=== PATIENT | male | born 1955 | race Hispanic/Latino ===

== ENCOUNTER 2020-11-07 20:48 | Inpatient (IN) | payer MEDICARE ==
[~2020-11-07 20:48] MED LIST: Iopamidol-370 76% 500 ML 1 ML ONE
[2020-11-07] MEDS ORDERED: Ondansetron PF 4 MG/2 ML Vial ONE ×2 (21:19→21:26)
[2020-11-07] MEDS ORDERED: Sodium Chloride 0.9% 100 ML ONE ×2 (21:20→22:05)
[2020-11-07] MEDS ORDERED: Morphine 4 MG/ML VIAL ONE (21:20)
[2020-11-07] MEDS ORDERED: Diltiazem 125 MG/25 ML ONE (21:20)
[2020-11-07] MEDS ORDERED: Diltiazem HCl 125 MG, Admixture Fee 1 EACH in Sodium Chloride 0.9% 100 ML IVPB SCH (21:30)
[2020-11-07 21:34] LABS: Hemoglobin 12.9 g/dL (14.0-18.0); Mean Corpuscular Hemoglobin 30.8 pg (27.0-31.0); Mean Corpuscular Volume 93.3 fL (78.0-98.0); RBC Distribution Width 15.3 % (11.5-14.5); Red Blood Cell (RBC) Count 4.19 mill/uL (4.70-6.10); White Blood Cell (WBC) Count 7.3 thou/uL (4.8-10.8)
[2020-11-07 21:52] LABS: Acetaminophen Less than 6.0 mcg/mL (10.0-30.0); Alcohol 116 mg/dL (Less than 10); CK (CPK) 3406 U/L (30-200); Magnesium 1.4 mg/dL (1.6-2.6); Salicylate Less than 8.0 mg/dL (15.0-30.0)
[2020-11-07] MEDS ORDERED: Magnesium 2 GM/50 ML BAG (IN WATER) ONE (21:53)
[2020-11-07 21:57] LABS: #Basophils 0.1 thou/uL (0.0-0.2); #Lymphocytes 0.9 thou/uL (1.20-3.40); #Monocytes 0.7 thou/uL (0.11-0.59); #Neutrophils 5.5 thou/uL (1.40-6.50); %Basophils 0.9 % (0.0-1.0); %Eosinophils 0.1 % (0.0-10.0); %Monocytes 9.9 % (0.0-10.0); %Neutrophils 76.1 % (42.0-75.0); Platelet Count 103 thou/uL (130-400)
[2020-11-07] MEDS ORDERED: Vancomycin 1 GM/200 ML BAG ONE (22:05)
[2020-11-07] MEDS ORDERED: cefTRIAXone\\ROCEPHIN 1 GM VIAL ONE ×2 (22:05→22:06)
[2020-11-07 22:08] LABS: INR-International Normal Ratio 1.3; Prothrombin Time 16.4 sec (12.0-14.7)
[2020-11-07 22:09] LABS: PTT 32.6 sec (22.9-36.1)
[2020-11-07 22:10] LABS: ALT (SGPT) 91 U/L (8-55); AST (SGOT) 216 U/L (5-34); Albumin 3.4 g/dL (3.4-4.8); Alkaline Phosphatase 179 U/L (40-110); Anion Gap 23 mmol/L (10-20); BUN (Urea Nitrogen) 12 mg/dL (8.4-25.7); Bilirubin, Total 1.7 mg/dL (0.2-1.2); Calc. Creatinine Clearance 0 mL/min (70-130); Calcium 8.2 mg/dL (7.8-10.44); Carbon Dioxide 17 mmol/L (23-31); Chloride 96 mmol/L (98-107); Globulin 3.8 g/dL (2.4-3.5); Glucose 281 mg/dL (80-115); Lipase 137 U/L (8-78); Potassium 3.5 mmol/L (3.5-5.1); Protein, Total 7.2 g/dL (5.8-8.1); Sodium 132 mmol/L (136-145)
[2020-11-07] MEDS ORDERED: Lorazepam 2 MG/ML VIAL ONE (22:15)
[2020-11-07 22:29] LABS: CKMB 30.1 ng/mL (0-6.6)
[2020-11-07 23:10] LABS: Analyzer IN Cardio ER; Base Excess (BEa) -1.3 mEq/L (-2.0 to +3.0); CO2 Tension 32.7 mmHg (35.0-45.0); Calcium, Ionized (arterial) 0.99 mmol/L (1.12-1.30); Hemoglobin (Hb) 13.3 g/dL (14.0-18.0); Potassium - ABG Lab 3.41 mmol/L (3.70-5.30); pH, Arterial 7.45 (7.35-7.45)
[2020-11-07 23:14] LABS: O2 Tension (PaO2), arterial 55.8 mmHg (> 80.0); Puncture Site LBA
[2020-11-07 23:15] LABS: ALV-art Gradient 53.055 mmHg (0-20)
[2020-11-07] MEDS ORDERED: Multivitamins, Adult 10 ML, Thiamine HCl 100 MG, Folic Acid 1 MG in Dextrose 5 %-0.45 %... IV SCH (23:59)
[2020-11-08] MEDS ORDERED: Magnesium 2 GM/50 ML BAG (IN WATER) ONE (00:15)
[2020-11-08 00:59] LABS: Bacteria/HPF None Seen HPF (None Seen); Bilirubin Negative (Negative); Blood, Urine 3+ (Negative); Clarity Clear (Clear); Glucose, Urine (Dipstick) Greater than 1000 mg/dL (Negative); Ketone, Urine 10 mg/dL (Negative); Leukocyte Negative Leu/uL (Negative); Nitrite Negative (Negative); Protein, Urine (Dipstick) 70 mg/dL (Neg-Trace); RBC/HPF 0-3 HPF (0-3); Specific Gravity, Urine 1.035 (1.002-1.036); Squamous Epithelial 0-3 HPF (0-3); Urobilinogen Normal mg/dL (Less than 2); WBC/HPF 0-3 HPF (0-3); pH, Urine 6.5 (5.0-9.0)
[2020-11-08] MEDS ORDERED: Ondansetron PF 4 MG/2 ML Vial IVP PRN (01:02)
[2020-11-08] MEDS ORDERED: Dextrose 50% Abboject 50 ML SYRINGE SLOW IVP PRN (01:06)
[2020-11-08] MEDS ORDERED: Dextrose 5% in Water 1,000 ML IV PRN (01:06)
[2020-11-08] MEDS ORDERED: Acetaminophen 500 MG TAB PO PRN (01:11)
[2020-11-08] MEDS ORDERED: Sodium Chloride 0.9% (PF) 10 ML VIAL FS PRN (01:15)
[2020-11-08] MEDS ORDERED: Pantoprazole 40 MG VIAL IVP SCH (01:15)
[2020-11-08 01:17] LABS: Amphetamine Not Detected (NotDetected); Barbiturates Screen Not Detected (NotDetected); Benzodiazepine Screen Not Detected (NotDetected); Cocaine Metabolite Screen Not Detected (NotDetected); Medtox Control Line Valid? VALID (VALID); Medtox Reader # READER 4; Methadone Not Detected (NotDetected); Methamphetamine Not Detected (NotDetected); Opiate Screen Detected (NotDetected); Oxycodone Screen Not Detected (NotDetected); Phencyclidine (PCP) Not Detected (NotDetected); THC/Cannabinoid Screen Detected (NotDetected); Tricyclic Screen Not Detected (NotDetected)
[2020-11-08] MEDS ORDERED: HumaLOG 300 UNITS/3 ML VIAL ONE (01:38)
[2020-11-08] MEDS ORDERED: Pantoprazole 40 MG VIAL ONE ×2 (01:38→08:54)
[2020-11-08] MEDS: HumaLOG 300 UNITS/3 ML VIAL SC PRN (01:45)
[2020-11-08 01:54] LABS: #Basophils 0.1 thou/uL (0.0-0.2); #Lymphocytes 0.9 thou/uL (1.20-3.40); #Monocytes 0.6 thou/uL (0.11-0.59); #Neutrophils 5.8 thou/uL (1.40-6.50); %Basophils 0.8 % (0.0-1.0); %Eosinophils 0.2 % (0.0-10.0); %Lymphocytes 11.5 % (21.0-51.0); %Monocytes 8.4 % (0.0-10.0); %Neutrophils 79.1 % (42.0-75.0); Hemoglobin 12.8 g/dL (14.0-18.0); Mean Corpuscular HGB CONC 33.7 g/dL (32.0-36.0); Mean Corpuscular Hemoglobin 31.7 pg (27.0-31.0); Mean Corpuscular Volume 93.9 fL (78.0-98.0); Mean Platelet Volume 9.2 fL (7.4-10.4); Platelet Count 83 thou/uL (130-400); RBC Distribution Width 15.1 % (11.5-14.5); Red Blood Cell (RBC) Count 4.05 mill/uL (4.70-6.10); White Blood Cell (WBC) Count 7.3 thou/uL (4.8-10.8)
[2020-11-08 02:17] LABS: Troponin I 0.044 ng/mL (< 0.028)
[2020-11-08 02:33] LABS: ALT (SGPT) 93 U/L (8-55); AST (SGOT) 221 U/L (5-34); Albumin 3.1 g/dL (3.4-4.8); Alkaline Phosphatase 171 U/L (40-110); Anion Gap 21 mmol/L (10-20); BUN (Urea Nitrogen) 11 mg/dL (8.4-25.7); Bilirubin, Direct 0.8 mg/dL (0.1-0.3); Bilirubin, Total 1.6 mg/dL (0.2-1.2); CK (CPK) 3335 U/L (30-200); Calc. Creatinine Clearance 0 mL/min (70-130); Calcium 7.8 mg/dL (7.8-10.44); Carbon Dioxide 16 mmol/L (23-31); Chloride 98 mmol/L (98-107); Glucose 278 mg/dL (80-115); Potassium 3.5 mmol/L (3.5-5.1); Protein, Total 6.9 g/dL (5.8-8.1); Sodium 131 mmol/L (136-145)
[2020-11-08] MEDS ORDERED: Lorazepam 2 MG/ML VIAL ONE ×2 (03:02→07:32)
[2020-11-08] MEDS: Lorazepam 2 MG/ML VIAL SLOW IVP PRN ×2 (03:09→07:37)
[2020-11-08] MEDS ORDERED: Ondansetron PF 4 MG/2 ML Vial ONE ×2 (03:09→06:14)
[2020-11-08] MEDS ORDERED: Nitroglycerin 0.4 MG TAB (25 Tab Bottle) SL PRN (04:17)
[2020-11-08] MEDS ORDERED: hydrALAZINE 20 MG/ML VIAL SLOW IVP PRN (04:30)
[2020-11-08 04:38] LABS: Lactic Acid 3.9 mmol/L (0.5-2.2)
[2020-11-08] MEDS ORDERED: Piperacillin/Tazobactam 3.375 GM in Sodium Chloride 0.9% 100 ML IVPB SCH ×2 (04:45→05:00)
[2020-11-08 04:47] LABS: Troponin I 0.047 ng/mL (< 0.028)
[2020-11-08] MEDS ORDERED: Piperacillin/Tazobactam 3.375 GM VIAL ONE ×3 (06:36→16:58)
[2020-11-08] MEDS ORDERED: Digoxin 0.25 MG TAB ONE (08:54)
[2020-11-08] MEDS ORDERED: Folic Acid 1 MG TAB ONE (08:54)
[2020-11-08] MEDS ORDERED: Multivitamin W/ Minerals 1 TAB PO SCH (09:00)
[2020-11-08] MEDS ORDERED: Folic Acid 1 MG TAB PO SCH (09:00)
[2020-11-08] MEDS: Sodium Chloride 0.9% 1,000 ML IV SCH ×3 (09:15→17:14)
[2020-11-08] MEDS: Piperacillin/Tazobactam 3.375 GM in Sodium Chloride 0.9% 100 ML IVPB SCH ×2 (09:16→17:13)
[2020-11-08] MEDS: chlordiazePOXIDE HCl 25 MG CAP PO SCH ×3 (09:16→21:49)
[2020-11-08] MEDS: Digoxin 0.25 MG TAB PO SCH (09:16)
[2020-11-08] MEDS: Pantoprazole 40 MG VIAL IVP SCH ×2 (09:16→21:49)
[2020-11-08] MEDS ORDERED: Thiamine HCl 200 MG/2 ML VIAL IM SCH (09:45)
[2020-11-08] MEDS ORDERED: Diazepam 5 MG TAB PO SCH (09:45)
[2020-11-08] MEDS ORDERED: Diazepam 5 MG TAB PO PRN (09:45)
[2020-11-08] MEDS ORDERED: Diazepam 5 MG TAB ONE (10:31)
[2020-11-08] MEDS ORDERED: chlordiazePOXIDE HCl 25 MG CAP ONE (17:14)
[2020-11-08 19:05] VITALS: BMI 44.2
[2020-11-09] MEDS: Sodium Chloride 0.9% 1,000 ML IV SCH ×3 (00:51→14:55)
[2020-11-09] MEDS: Piperacillin/Tazobactam 3.375 GM in Sodium Chloride 0.9% 100 ML IVPB SCH ×3 (00:53→17:30)
[2020-11-09 04:43] LABS: #Eosinphils 0.1 thou/uL (0.0-0.7); #Monocytes 0.5 thou/uL (0.11-0.59); #Neutrophils 2.7 thou/uL (1.40-6.50); %Basophils 0.9 % (0.0-1.0); %Lymphocytes 23.2 % (21.0-51.0); %Monocytes 11.8 % (0.0-10.0); %Neutrophils 62.1 % (42.0-75.0); Hemoglobin 11.9 g/dL (14.0-18.0); Mean Corpuscular Hemoglobin 31.7 pg (27.0-31.0); Mean Corpuscular Volume 93.3 fL (78.0-98.0); Mean Platelet Volume 9.9 fL (7.4-10.4); Platelet Count 61 thou/uL (130-400); RBC Distribution Width 15.6 % (11.5-14.5); Red Blood Cell (RBC) Count 3.77 mill/uL (4.70-6.10); White Blood Cell (WBC) Count 4.3 thou/uL (4.8-10.8)
[2020-11-09 05:10] LABS: ALT (SGPT) 89 U/L (8-55); AST (SGOT) 212 U/L (5-34); Albumin 2.8 g/dL (3.4-4.8); Alkaline Phosphatase 173 U/L (40-110); Anion Gap 11 mmol/L (10-20); BUN (Urea Nitrogen) 12 mg/dL (8.4-25.7); Bilirubin, Direct 0.8 mg/dL (0.1-0.3); Bilirubin, Total 1.9 mg/dL (0.2-1.2); Calc. Creatinine Clearance 158 mL/min (70-130); Calcium 7.5 mg/dL (7.8-10.44); Carbon Dioxide 21 mmol/L (23-31); Chloride 101 mmol/L (98-107); Glucose 235 mg/dL (80-115); Iron 66 ug/dL (65-175); Iron Binding Capacity, Total 296 mcg/dL (261-462); Magnesium 1.8 mg/dL (1.6-2.6); Potassium 3.4 mmol/L (3.5-5.1); Protein, Total 6.3 g/dL (5.8-8.1); Sodium 130 mmol/L (136-145)
[2020-11-09 05:19] LABS: Ferritin 268.02 ng/mL (22-322)
[2020-11-09 05:32] LABS: HBCM Index 0.09 S/CO (0-0.79); HBSAg Index 0.24 S/CO (0-0.99); Hep A IgM AB Non-Reactive (NonReactive); Hep A IgM S/CO 0.32 S/CO (0-0.79); Hep B Surf Ag Non-Reactive S/CO (NonReactive); Hep C IgG Ab Non-Reactive (NonReactive); Hep C Index 0.05 S/CO (0-0.79); Hepatitis B Core IgM Abs Non-Reactive (NonReactive)
[2020-11-09] MEDS: HumaLOG 300 UNITS/3 ML VIAL SC PRN ×3 (06:41→17:30)
[2020-11-09] MEDS: Multivit, Therapeutic 1 TAB PO SCH (08:58)
[2020-11-09] MEDS: Pantoprazole 40 MG VIAL IVP SCH ×2 (08:58→20:59)
[2020-11-09] MEDS: Digoxin 0.25 MG TAB PO SCH (08:58)
[2020-11-09] MEDS: Thiamine 100 MG TAB PO SCH (08:58)
[2020-11-09] MEDS: chlordiazePOXIDE HCl 25 MG CAP PO SCH ×3 (09:03→20:57)
[2020-11-09] MEDS: Folic Acid 1 MG TAB PO SCH (09:08)
[2020-11-09] MEDS ORDERED: Potassium Chloride 20 MEQ TAB PO SCH (09:30)
[2020-11-09] MEDS: methylPREDNISolone Sod Succ/PF 125 MG/2 ML VIAL IVP SCH (17:29)
[2020-11-10] MEDS: Piperacillin/Tazobactam 3.375 GM in Sodium Chloride 0.9% 100 ML IVPB SCH (00:22)
[2020-11-10] MEDS: methylPREDNISolone Sod Succ/PF 125 MG/2 ML VIAL IVP SCH ×4 (00:22→18:29)
[2020-11-10] MEDS: Sodium Chloride 0.9% 1,000 ML IV SCH ×2 (00:29→06:05)
[2020-11-10] MEDS: HumaLOG 300 UNITS/3 ML VIAL SC PRN ×4 (01:06→21:05)
[2020-11-10 07:07] LABS: #Basophils 0.1 thou/uL (0.0-0.2); #Lymphocytes 0.4 thou/uL (1.20-3.40); #Monocytes 0.1 thou/uL (0.11-0.59); #Neutrophils 2.5 thou/uL (1.40-6.50); %Basophils 1.7 % (0.0-1.0); %Eosinophils 0.1 % (0.0-10.0); %Monocytes 2.4 % (0.0-10.0); %Neutrophils 81.9 % (42.0-75.0); Hemoglobin 13.1 g/dL (14.0-18.0); Mean Corpuscular HGB CONC 33.2 g/dL (32.0-36.0); Mean Corpuscular Hemoglobin 31.5 pg (27.0-31.0); Mean Corpuscular Volume 94.8 fL (78.0-98.0); Platelet Count 52 thou/uL (130-400); RBC Distribution Width 15.8 % (11.5-14.5); Red Blood Cell (RBC) Count 4.17 mill/uL (4.70-6.10); White Blood Cell (WBC) Count 3.1 thou/uL (4.8-10.8)
[2020-11-10 07:17] LABS: ALT (SGPT) 98 U/L (8-55); AST (SGOT) 172 U/L (5-34); Alkaline Phosphatase 235 U/L (40-110); Anion Gap 16 mmol/L (10-20); BUN (Urea Nitrogen) 9 mg/dL (8.4-25.7); Bilirubin, Total 1.8 mg/dL (0.2-1.2); CK (CPK) 1956 U/L (30-200); Calc. Creatinine Clearance 163 mL/min (70-130); Calcium 7.7 mg/dL (7.8-10.44); Carbon Dioxide 15 mmol/L (23-31); Chloride 100 mmol/L (98-107); Glucose 282 mg/dL (80-115); Magnesium 1.8 mg/dL (1.6-2.6); Potassium 3.7 mmol/L (3.5-5.1); Protein, Total 6.8 g/dL (5.8-8.1); Sodium 127 mmol/L (136-145)
[2020-11-10] MEDS ORDERED: Lantus 1000 UNITS/10 ML VIAL SC SCH (09:00)
[2020-11-10] MEDS: chlordiazePOXIDE HCl 25 MG CAP PO SCH ×3 (09:13→21:04)
[2020-11-10] MEDS: Digoxin 0.25 MG TAB PO SCH (09:13)
[2020-11-10] MEDS: Glimepiride 1 MG TAB PO SCH (09:14)
[2020-11-10] MEDS: Thiamine 100 MG TAB PO SCH (09:14)
[2020-11-10] MEDS: Losartan 25 MG TAB PO SCH (09:14)
[2020-11-10] MEDS: Folic Acid 1 MG TAB PO SCH (09:14)
[2020-11-10] MEDS: Multivit, Therapeutic 1 TAB PO SCH (09:14)
[2020-11-10] MEDS: Pantoprazole 40 MG VIAL IVP SCH ×2 (09:15→21:06)
[2020-11-10] MEDS: Diazepam 5 MG TAB PO PRN (14:06)
[2020-11-11] MEDS: methylPREDNISolone Sod Succ 40 MG VIAL IVP SCH ×2 (00:50→05:57)
[2020-11-11] MEDS: methylPREDNISolone Sod Succ/PF 125 MG/2 ML VIAL IVP SCH (01:33)
[2020-11-11] MEDS: HumaLOG 300 UNITS/3 ML VIAL SC PRN ×4 (05:58→21:19)
[2020-11-11] MEDS: Diazepam 5 MG TAB PO PRN ×3 (06:09→21:52)
[2020-11-11] MEDS: Glimepiride 1 MG TAB PO SCH (08:42)
[2020-11-11] MEDS: Losartan 25 MG TAB PO SCH (08:42)
[2020-11-11] MEDS: Folic Acid 1 MG TAB PO SCH (08:42)
[2020-11-11] MEDS: Multivit, Therapeutic 1 TAB PO SCH (08:42)
[2020-11-11] MEDS: Digoxin 0.25 MG TAB PO SCH (08:42)
[2020-11-11] MEDS: Thiamine 100 MG TAB PO SCH (08:43)
[2020-11-11] MEDS: Pantoprazole 40 MG VIAL IVP SCH (08:43)
[2020-11-11] MEDS: Lantus 1000 UNITS/10 ML VIAL SC SCH (08:44)
[2020-11-11] MEDS: Lorazepam 2 MG/ML VIAL SLOW IVP PRN (08:45)
[2020-11-11] MEDS: chlordiazePOXIDE HCl 25 MG CAP PO SCH (08:51)
[2020-11-11] MEDS ORDERED: methylPREDNISolone Sod Succ 40 MG VIAL IVP SCH (09:00)
[2020-11-11] MEDS: chlordiazePOXIDE HCl 5 MG CAP PO SCH ×3 (10:11→21:19)
[2020-11-11 11:03] LABS: #Lymphocytes 0.6 thou/uL (1.20-3.40); #Monocytes 0.2 thou/uL (0.11-0.59); #Neutrophils 3.8 thou/uL (1.40-6.50); %Basophils 0.1 % (0.0-1.0); %Eosinophils 0.2 % (0.0-10.0); %Lymphocytes 12.3 % (21.0-51.0); %Monocytes 4.4 % (0.0-10.0); Hemoglobin 13.3 g/dL (14.0-18.0); Mean Corpuscular HGB CONC 32.7 g/dL (32.0-36.0); Mean Corpuscular Hemoglobin 31.1 pg (27.0-31.0); Platelet Count 68 thou/uL (130-400); RBC Distribution Width 16.3 % (11.5-14.5); Red Blood Cell (RBC) Count 4.29 mill/uL (4.70-6.10); White Blood Cell (WBC) Count 4.6 thou/uL (4.8-10.8)
[2020-11-11 11:10] LABS: ALT (SGPT) 90 U/L (8-55); AST (SGOT) 90 U/L (5-34); Albumin 3.1 g/dL (3.4-4.8); Alkaline Phosphatase 220 U/L (40-110); Anion Gap 13 mmol/L (10-20); BUN (Urea Nitrogen) 16 mg/dL (8.4-25.7); Bilirubin, Total 1.7 mg/dL (0.2-1.2); Calc. Creatinine Clearance 122 mL/min (70-130); Calcium 8.2 mg/dL (7.8-10.44); Carbon Dioxide 21 mmol/L (23-31); Chloride 102 mmol/L (98-107); Glucose 381 mg/dL (80-115); Potassium 4.1 mmol/L (3.5-5.1); Protein, Total 7.1 g/dL (5.8-8.1); Sodium 132 mmol/L (136-145)
[2020-11-12] MEDS: Diazepam 5 MG TAB PO PRN ×2 (05:47→11:24)
[2020-11-12] MEDS: HumaLOG 300 UNITS/3 ML VIAL SC PRN ×4 (05:50→22:53)
[2020-11-12] MEDS: chlordiazePOXIDE HCl 5 MG CAP PO SCH ×3 (08:42→20:31)
[2020-11-12] MEDS: Folic Acid 1 MG TAB PO SCH (08:43)
[2020-11-12] MEDS: Multivit, Therapeutic 1 TAB PO SCH (08:43)
[2020-11-12] MEDS: Thiamine 100 MG TAB PO SCH (08:43)
[2020-11-12] MEDS: Glimepiride 2 MG TAB PO SCH (08:43)
[2020-11-12] MEDS: Losartan 25 MG TAB PO SCH (08:43)
[2020-11-12] MEDS: Lantus 1000 UNITS/10 ML VIAL SC SCH (08:45)
[2020-11-12] MEDS: Digoxin 0.25 MG TAB PO SCH (08:45)
[2020-11-12 18:57] LABS: ALT (SGPT) 80 U/L (8-55); AST (SGOT) 87 U/L (5-34); Albumin 2.9 g/dL (3.4-4.8); Alkaline Phosphatase 220 U/L (40-110); Anion Gap 12 mmol/L (10-20); BUN (Urea Nitrogen) 17 mg/dL (8.4-25.7); Bilirubin, Total 1.3 mg/dL (0.2-1.2); Calc. Creatinine Clearance 130 mL/min (70-130); Calcium 8.3 mg/dL (7.8-10.44); Carbon Dioxide 25 mmol/L (23-31); Chloride 100 mmol/L (98-107); Globulin 3.5 g/dL (2.4-3.5); Glucose 197 mg/dL (80-115); Potassium 3.5 mmol/L (3.5-5.1); Protein, Total 6.4 g/dL (5.8-8.1); Sodium 133 mmol/L (136-145)
[2020-11-13 05:05] LABS: Hemoglobin 13.7 g/dL (14.0-18.0); Mean Corpuscular HGB CONC 32.7 g/dL (32.0-36.0); Mean Corpuscular Hemoglobin 30.9 pg (27.0-31.0); Mean Corpuscular Volume 94.7 fL (78.0-98.0); Mean Platelet Volume 9.9 fL (7.4-10.4); Platelet Count 78 thou/uL (130-400); RBC Distribution Width 16.3 % (11.5-14.5); Red Blood Cell (RBC) Count 4.44 mill/uL (4.70-6.10); White Blood Cell (WBC) Count 6.7 thou/uL (4.8-10.8)
[2020-11-13 05:49] LABS: Band 7 % (5-11); Eosinophils 1 % (0-10); Lymphocytes 30 % (21-51); MDiff Complete? YES; Monocytes 4 % (0-10); Neutrophil 58 % (42-75); Platelet Morphology Comment Appears Decreased
[2020-11-13] MEDS: HumaLOG 300 UNITS/3 ML VIAL SC PRN ×3 (06:17→18:05)
[2020-11-13] MEDS: Digoxin 0.25 MG TAB PO SCH (11:18)
[2020-11-13] MEDS: Glimepiride 2 MG TAB PO SCH (11:19)
[2020-11-13] MEDS: Losartan 25 MG TAB PO SCH (11:19)
[2020-11-13] MEDS: Thiamine 100 MG TAB PO SCH (11:19)
[2020-11-13] MEDS: Folic Acid 1 MG TAB PO SCH (11:20)
[2020-11-13] MEDS: Lantus 1000 UNITS/10 ML VIAL SC SCH ×2 (11:20→21:03)
[2020-11-13] MEDS: Multivit, Therapeutic 1 TAB PO SCH (11:20)
[2020-11-13] MEDS: chlordiazePOXIDE HCl 5 MG CAP PO SCH (12:09)
[2020-11-13] MEDS ORDERED: Loperamide HCl 2 MG CAP PO SCH (14:30)
[2020-11-13] MEDS: chlordiazePOXIDE HCl 25 MG CAP PO SCH (21:04)
[2020-11-13] MEDS ORDERED: Loperamide HCl 2 MG CAP PO PRN (22:13)
[2020-11-14 04:43] LABS: Hemoglobin 14.3 g/dL (14.0-18.0); Mean Corpuscular HGB CONC 33.7 g/dL (32.0-36.0); Mean Corpuscular Volume 94.9 fL (78.0-98.0); Platelet Count 73 thou/uL (130-400); RBC Distribution Width 16.3 % (11.5-14.5); Red Blood Cell (RBC) Count 4.47 mill/uL (4.70-6.10); White Blood Cell (WBC) Count 4.6 thou/uL (4.8-10.8)
[2020-11-14 04:56] LABS: ALT (SGPT) 79 U/L (8-55); AST (SGOT) 84 U/L (5-34); Albumin 2.9 g/dL (3.4-4.8); Alkaline Phosphatase 180 U/L (40-110); Anion Gap 13 mmol/L (10-20); BUN (Urea Nitrogen) 11 mg/dL (8.4-25.7); Bilirubin, Total 1.6 mg/dL (0.2-1.2); Calc. Creatinine Clearance 140 mL/min (70-130); Calcium 8.5 mg/dL (7.8-10.44); Carbon Dioxide 22 mmol/L (23-31); Chloride 102 mmol/L (98-107); Globulin 3.7 g/dL (2.4-3.5); Glucose 170 mg/dL (80-115); Potassium 3.9 mmol/L (3.5-5.1); Protein, Total 6.6 g/dL (5.8-8.1); Sodium 133 mmol/L (136-145)
[2020-11-14 05:30] LABS: Band 2 % (5-11); Lymphocytes 35 % (21-51); MDiff Complete? YES; Monocytes 12 % (0-10); Neutrophil 51 % (42-75)
[2020-11-14] MEDS: HumaLOG 300 UNITS/3 ML VIAL SC PRN ×4 (06:01→21:27)
[2020-11-14] MEDS: Losartan 25 MG TAB PO SCH (09:44)
[2020-11-14] MEDS: Multivit, Therapeutic 1 TAB PO SCH (09:44)
[2020-11-14] MEDS: Folic Acid 1 MG TAB PO SCH (09:45)
[2020-11-14] MEDS: Glimepiride 2 MG TAB PO SCH (09:45)
[2020-11-14] MEDS: Thiamine 100 MG TAB PO SCH (09:45)
[2020-11-14] MEDS: Lantus 1000 UNITS/10 ML VIAL SC SCH ×2 (09:46→21:14)
[2020-11-14] MEDS: Digoxin 0.25 MG TAB PO SCH (09:52)
[2020-11-14] MEDS: chlordiazePOXIDE HCl 25 MG CAP PO SCH ×2 (11:21→21:13)
[2020-11-14] MEDS: Pepto Bismol Chew TAB PO PRN ×2 (16:32→20:15)
[2020-11-15 04:49] LABS: Hemoglobin 13.3 g/dL (14.0-18.0); Mean Corpuscular HGB CONC 33.3 g/dL (32.0-36.0); Mean Corpuscular Hemoglobin 31.6 pg (27.0-31.0); Mean Corpuscular Volume 94.8 fL (78.0-98.0); Mean Platelet Volume 9.9 fL (7.4-10.4); Platelet Count 64 thou/uL (130-400); RBC Distribution Width 16.2 % (11.5-14.5); Red Blood Cell (RBC) Count 4.22 mill/uL (4.70-6.10); White Blood Cell (WBC) Count 3.6 thou/uL (4.8-10.8)
[2020-11-15 05:03] LABS: Anion Gap 12 mmol/L (10-20); BUN (Urea Nitrogen) 10 mg/dL (8.4-25.7); Calc. Creatinine Clearance 135 mL/min (70-130); Calcium 8.5 mg/dL (7.8-10.44); Carbon Dioxide 22 mmol/L (23-31); Chloride 102 mmol/L (98-107); Glucose 271 mg/dL (80-115); Magnesium 1.7 mg/dL (1.6-2.6); Sodium 132 mmol/L (136-145)
[2020-11-15] MEDS: HumaLOG 300 UNITS/3 ML VIAL SC PRN ×3 (06:34→17:40)
[2020-11-15 06:50] LABS: Band 4 % (5-11); Eosinophils 2 % (0-10); Lymphocytes 30 % (21-51); MDiff Complete? YES; Monocytes 13 % (0-10); Neutrophil 50 % (42-75); Platelet Morphology Comment Appears Decreased
[2020-11-15] MEDS ORDERED: Lantus 1000 UNITS/10 ML VIAL SC SCH (09:00)
[2020-11-15] MEDS: Multivit, Therapeutic 1 TAB PO SCH (10:52)
[2020-11-15] MEDS: Glimepiride 2 MG TAB PO SCH (10:53)
[2020-11-15] MEDS: Losartan 25 MG TAB PO SCH (10:53)
[2020-11-15] MEDS: Digoxin 0.25 MG TAB PO SCH (10:53)
[2020-11-15] MEDS: Folic Acid 1 MG TAB PO SCH (10:53)
[2020-11-15] MEDS: Thiamine 100 MG TAB PO SCH (10:53)
[2020-11-15] MEDS: chlordiazePOXIDE HCl 25 MG CAP PO SCH ×2 (10:54→21:40)
[2020-11-15] MEDS: Pepto Bismol Chew TAB PO PRN (10:57)
[2020-11-15] MEDS: Lantus 1000 UNITS/10 ML VIAL SC SCH ×2 (11:00→21:40)
[2020-11-15] MEDS ORDERED: Loperamide HCl 2 MG CAP PO PRN (15:15)
[2020-11-15] MEDS: Nicotine 21 MG PATCH TOP SCH (15:45)
[2020-11-15] MEDS: Cefdinir 300 MG CAP PO SCH (21:40)
[2020-11-16 04:46] LABS: Hemoglobin 12.7 g/dL (14.0-18.0); Mean Corpuscular HGB CONC 32.3 g/dL (32.0-36.0); Mean Corpuscular Volume 96.1 fL (78.0-98.0); Mean Platelet Volume 9.5 fL (7.4-10.4); Platelet Count 71 thou/uL (130-400); RBC Distribution Width 16.3 % (11.5-14.5); Red Blood Cell (RBC) Count 4.08 mill/uL (4.70-6.10); White Blood Cell (WBC) Count 2.6 thou/uL (4.8-10.8)
[2020-11-16 04:48] LABS: Anion Gap 10 mmol/L (10-20); BUN (Urea Nitrogen) 8 mg/dL (8.4-25.7); Calc. Creatinine Clearance 120 mL/min (70-130); Calcium 8.8 mg/dL (7.8-10.44); Carbon Dioxide 27 mmol/L (23-31); Chloride 103 mmol/L (98-107); Glucose 161 mg/dL (80-115); Sodium 135 mmol/L (136-145)
[2020-11-16 05:31] LABS: Band 1 % (5-11); Eosinophils 1 % (0-10); Lymphocytes 30 % (21-51); MDiff Complete? YES; Monocytes 23 % (0-10); Neutrophil 43 % (42-75); Platelet Morphology Comment Appears Decreased; Reactive Lymphocytes 1 % (0-10)
[2020-11-16] MEDS: HumaLOG 300 UNITS/3 ML VIAL SC PRN ×2 (06:08→11:16)
[2020-11-16] MEDS: Glimepiride 2 MG TAB PO SCH (07:47)
[2020-11-16] MEDS ORDERED: chlordiazePOXIDE HCl 5 MG CAP PO SCH (09:00)
[2020-11-16] MEDS: chlordiazePOXIDE HCl 25 MG CAP PO SCH (10:09)
[2020-11-16] MEDS: Lantus 1000 UNITS/10 ML VIAL SC SCH (10:10)
[2020-11-16] MEDS: Thiamine 100 MG TAB PO SCH (10:12)
[2020-11-16] MEDS: Multivit, Therapeutic 1 TAB PO SCH (10:12)
[2020-11-16] MEDS: Folic Acid 1 MG TAB PO SCH (10:12)
[2020-11-16] MEDS: Digoxin 0.25 MG TAB PO SCH (10:12)
[2020-11-16] MEDS: Losartan 25 MG TAB PO SCH (10:13)
[2020-11-16] MEDS: Cefdinir 300 MG CAP PO SCH (10:13)
[2020-11-16] MEDS: Nicotine 21 MG PATCH TOP SCH (14:39)
[2020-11-16 15:45] VITALS: TEMP 98.4
[2020-11-16 17:03] VITALS: BP 127/64
== END 2020-11-16 17:30 | disposition home or self-care (01) | DRG 897 ==
LOC: ERS 20:48 → ERHOLD 11-08 00:38 → 2NO 11-08 18:40
PROVIDERS: ADMIT Internal Medicine; ATTEND Emergency Medicine
DX: F10.239 Alcohol dependence with withdrawal, unspecified (principal); I47.1 Supraventricular tachycardia; I42.6 Alcoholic cardiomyopathy; M62.82 Rhabdomyolysis; K92.1 Melena; E87.2 Acidosis; J44.1 Chronic obstructive pulmonary disease with (acute) exacerbation; D68.4 Acquired coagulation factor deficiency; Z68.41 Body mass index [BMI] 40.0-44.9, adult; E87.1 Hypo-osmolality and hyponatremia; R44.3 Hallucinations, unspecified; I25.10 Atherosclerotic heart disease of native coronary artery without angina pectoris; E78.5 Hyperlipidemia, unspecified; I11.0 Hypertensive heart disease with heart failure; D69.6 Thrombocytopenia, unspecified; F41.9 Anxiety disorder, unspecified; F32.9 Major depressive disorder, single episode, unspecified; F17.210 Nicotine dependence, cigarettes, uncomplicated; I50.9 Heart failure, unspecified; F19.10 Other psychoactive substance abuse, uncomplicated; K70.30 Alcoholic cirrhosis of liver without ascites; E66.01 Morbid (severe) obesity due to excess calories; D69.59 Other secondary thrombocytopenia; I48.91 Unspecified atrial fibrillation; E11.65 Type 2 diabetes mellitus with hyperglycemia; R19.7 Diarrhea, unspecified; Z88.5 Allergy status to narcotic agent; Z79.84 Long term (current) use of oral hypoglycemic drugs; Z79.899 Other long term (current) drug therapy; Z79.01 Long term (current) use of anticoagulants
CPT/HCPCS: 36415; 36416; 36600; 71045; 71275; 74174; 76705; 80048; 80053; 80074; 80076; 80306; 80307; 81003; 81015; 82105; 82274; 82550; 82553; 82728; 82805; 83540; 83550; 83605; 83690; 83735; 83880; 84443; 84484; 85025; 85610; 85730; 86850; 86900; 86901; 87040; 87045; 87046; 87081; 87086; 87324; 87427; 87449; 93005; 93306; 94760; 96365; 96366; 96367; 96375; C9113; J0696; J1815; J2060; J2270; J2405; J2543; J2920; J2930; J3370; J3411; J3475; J3490; J7042; Q9967

== ENCOUNTER 2021-03-15 14:50 | Emergency (ER) | payer MEDICARE ==
[2021-03-15 15:25] LABS: #Basophils 0.1 thou/uL (0.0-0.2); #Eosinphils 0.1 thou/uL (0.0-0.7); #Lymphocytes 1.5 thou/uL (1.20-3.40); #Monocytes 0.6 thou/uL (0.11-0.59); %Basophils 0.8 % (0.0-1.0); %Eosinophils 1.3 % (0.0-10.0); %Lymphocytes 23.5 % (21.0-51.0); %Monocytes 9.3 % (0.0-10.0); %Neutrophils 65.1 % (42.0-75.0); Hemoglobin 13.8 g/dL (14.0-18.0); Mean Corpuscular HGB CONC 32.9 g/dL (32.0-36.0); Mean Corpuscular Hemoglobin 29.9 pg (27.0-31.0); Mean Corpuscular Volume 90.8 fL (78.0-98.0); Mean Platelet Volume 10.2 fL (7.4-10.4); Platelet Count 80 thou/uL (130-400); RBC Distribution Width 16.5 % (11.5-14.5); Red Blood Cell (RBC) Count 4.62 mill/uL (4.70-6.10); White Blood Cell (WBC) Count 6.2 thou/uL (4.8-10.8)
[2021-03-15 15:42] LABS: Anion Gap 13 mmol/L (10-20); BUN (Urea Nitrogen) 9 mg/dL (8.4-25.7); Calc. Creatinine Clearance 0 mL/min (70-130); Calcium 9.4 mg/dL (7.8-10.44); Carbon Dioxide 22 mmol/L (23-31); Chloride 102 mmol/L (98-107); Glucose 215 mg/dL (80-115); Potassium 4.2 mmol/L (3.5-5.1); Sodium 133 mmol/L (136-145)
[2021-03-15 17:15] LABS: ALT (SGPT) 17 U/L (8-55); AST (SGOT) 22 U/L (5-34); Albumin 3.4 g/dL (3.4-4.8); Alkaline Phosphatase 118 U/L (40-110); Bilirubin, Total 1.6 mg/dL (0.2-1.2); Globulin 3.9 g/dL (2.4-3.5); Protein, Total 7.3 g/dL (5.8-8.1)
[2021-03-15 18:10] LABS: Bacteria/HPF None Seen HPF (None Seen); Bilirubin Negative (Negative); Blood, Urine Negative (Negative); Clarity Clear (Clear); Glucose, Urine (Dipstick) 500 mg/dL (Negative); Ketone, Urine Negative (Negative); Leukocyte Negative Leu/uL (Negative); Nitrite Negative (Negative); Protein, Urine (Dipstick) 100 mg/dL (Neg-Trace); RBC/HPF 0-3 HPF (0-3); Specific Gravity, Urine 1.021 (1.002-1.036); Squamous Epithelial 0-3 HPF (0-3); WBC/HPF 0-3 HPF (0-3)
[2021-03-15] MEDS ORDERED: Ketorolac Tromethamine 30 MG/ML VIAL ONE (19:19)
[2021-03-15] MEDS ORDERED: Ondansetron PF 4 MG/2 ML Vial ONE (19:19)
== END 2021-03-15 19:28 | disposition home or self-care (01) ==
LOC: ERS 14:50
DX: S39.011A Strain of muscle, fascia and tendon of abdomen, initial encounter (principal); J30.9 Allergic rhinitis, unspecified; R16.1 Splenomegaly, not elsewhere classified; J06.9 Acute upper respiratory infection, unspecified; I25.10 Atherosclerotic heart disease of native coronary artery without angina pectoris; I11.0 Hypertensive heart disease with heart failure; I50.9 Heart failure, unspecified; E11.9 Type 2 diabetes mellitus without complications; E78.5 Hyperlipidemia, unspecified; J44.9 Chronic obstructive pulmonary disease, unspecified; F17.210 Nicotine dependence, cigarettes, uncomplicated; X58.XXXA Exposure to other specified factors, initial encounter
CPT/HCPCS: 36415; 74177; 81003; 81015; 83690; 85025; 96374; 96375; J1885; J2405; Q9967